=== PATIENT | male | born 1985 | race Caucasian/White ===

== ENCOUNTER 2021-03-04 23:25 | Emergency (ER) | payer SELFPAY ==
--- NOTE | 2021-03-04 23:28 | XRR_ITS ---
PROCEDURE INFORMATION: Exam: XR Chest Exam date and time: 03/04/2021 11:28 PM Age: 35 years old Clinical indication: Cough and fever and shortness of breath TECHNIQUE: Imaging protocol: XR of the chest. Views: 1 view. COMPARISON: No relevant prior studies available. FINDINGS: Lungs: Visualized portions of the lungs are clear. Pleural spaces: Unremarkable. No pleural effusion. No pneumothorax. Heart/Mediastinum: Heart is within normal limits of size. Bones/joints: There is old healed left clavicle fracture. XR/XR chest 1V portable [id number] IMPRESSION: No acute infiltrate.
[2021-03-04 23:35] VITALS: BP 131/83; PULSE 90; RESP 20; TEMP 38.3; O2SAT 96; BMI 24.3
--- NOTE | 2021-03-04 23:54 | W.ED.COVID ---
HPI - COVID General: Chief Complaint: COVID symptoms Stated Complaint: Fever\Cough\SOB\Muscle Aches Poss Covid Time Seen by Provider: 03/04/21 23:47 Source: patient Mode of arrival: ambulatory Limitations: no limitations Triage information: Has fever, cough or shortness of breath. No known COVID + exposure last 14 days History of Present Illness: HPI Narrative: 35-year-old male states that over the last 10 to 12 days has been having fever along with cough congestion and body aches. He states he is also had chills and diarrhea. States he has had some neck pain as well as anterior and felt like and swelling in his anterior neck. Denies any vomiting. He denies any worsening proving factors. He states his has had similar symptoms and they have quarantine themselves at home. He has not had his Covid vaccine. COVID 19 common symptoms: positive fever(s), chills, non-productive cough and body aches; negative headache(s), throat pain, nausea, vomiting or diarrhea COVID 19 other sytmptoms: negative chest pain COVID Results: SARS-CoV-2 Antigen (Rapid) Negative (Negative) 03/05/21 00:13 03/05/21 Review of Systems Const: Reports: fever(s), chills and body aches Eyes: Denies: blurry vision or eye discomfort ENMT: Denies: throat pain or dental pain Card: Denies: chest pain Resp: Reports: non-productive cough GI: Denies: abdominal pain, nausea, vomiting or diarrhea : Denies: dysuria Musc: Denies: neck pain or back pain Skin/Breast: Denies: rash Neuro: Denies: headache(s) Psych: Denies: depression Amado/Lymph: Denies: easy bruising All/Imm: Denies: urticaria Physical Exam Const: COMMON NORMALS: no acute distress, patient oriented x3 and healthy appearing HENMT: COMMON NORMALS: normocephalic and atraumatic HEAD & SCALP: normocephalic and atraumatic MOUTH: Normal oral and palatal mucosa present and moist mucous membranes abnormal THROAT: posterior oropharynx normal Eye: COMMON NORMALS: Equal, round and reactive pupils present and EOMs intact bilaterally PUPIL: Yes Equal, round and reactive pupils present Neck/C-Spine: COMMON NORMALS: full ROM, no lymphadenopathy, supple and no meningeal signs Chest: COMMONS NORMALS: normal inspection of the chest and normal palpation of entire chest wall Resp: COMMON NORMALS: normal respiratory effort, No retractions, No use of accessory muscles and clear to auscultation bilaterally AUSCULTATION: clear to auscultation bilaterally Cardio: COMMON NORMALS: regular rate, regular rhythm and No murmurs present (Cardio) RATE: regular rate RHYTHM: regular rhythm GI: COMMON NORMALS: Normal to inspection, nondistended, normoactive bowel sounds present, Soft to palpation, non-tender and no masses PALPATION: Yes Soft to palpation Extremity: COMMON NORMALS: normal to inspection and full ROM Neuro: COMMON NORMALS: patient oriented x3, moves all extremities and no focal motor deficits MENINGEAL SIGNS: Yes no meningeal signs Psych: COMMON NORMALS: mental status grossly normal, Normal thought process present and cooperative THOUGHT PROCESS: Normal thought process present Skin: COMMON NORMALS: no rashes or lesions noted and no wounds GENERAL SKIN EXAM: no rashes or lesions noted Course Vital Signs: Vital signs: Vital Signs Temperature 100.9 F H 03/04/21 23:35 Pulse Rate 87 03/05/21 00:16 Respiratory Rate 17 03/05/21 00:16 Blood Pressure 133/77 03/05/21 00:16 Pulse Oximetry 97 03/05/21 00:17 MDM - COVID MDM Narrative: Medical decision making narrative: Patient presents here with symptoms consider like a viral infection. He likely had Covid. His x-ray and blood work here are all normal. He has no signs of any serious infection no sign of meningitis. He is stable for discharge is to follow-up with PCP and return if worsening. He understands agrees to plan. Lab Data: Labs: Lab Results 03/04/21 03/04/21 03/05/21 Range/Units 00:13 00:13 00:13 WBC 10.7 H (4.0-10.0) 10^3/ uL RBC 4.77 (4.1-5.3) 10^6/u L Hgb 14.7 (11.7-16.6) g/dL Hct 42.0 (42.0-52.0) % MCV 88.1 (80-94) fl MCH 30.8 (28.0-34.0) pg MCHC 35.0 (30.0-36.0) g/dL RDW 11.2 L (12.1-15.1) % Plt Count 252 (130-400) 10^3/c mm MPV 9.2 (7.4-10.4) fL Neut % (Auto) 69.7 % Lymph % (Auto) 19.6 % [place] % (Auto) 8.6 % Eos % (Auto) 1.0 % Baso % (Auto) 0.4 % Neut # (Auto) 7.48 (1.8-7.7) 10^3/u L Lymph # (Auto) 2.1 (0.8-4.8) 10^3/u L [place] # (Auto) 0.9 (0.2-0.9) 10^3/u L Eos # (Auto) 0.1 (0.0-0.8) 10^3/u L Baso # (Auto) 0.0 (0.0-0.1) 10^3/u L Nucleated RBC % (a uto) 0 % Nucleated RBCs # 0.0 /100WBC Sodium 139 (136-145) mmol/L Potassium 3.9 (3.5-5.1) mmol/L Chloride 101 (98-107) mmol/L Carbon Dioxide 24 (22-29) mmol/L Anion Gap 17.9 (5-19) BUN 7 (6-20) mg/dL Creatinine 0.8 (0.7-1.2) mg/dL GFR Calculation 109.4 (90-130) mL/min Glucose 80 (65-115) mg/dL Calculated Osmolal ity 285 (285-295) mOsm/k g Calcium 9.1 (8.5-10.5) mg/dL Total Bilirubin 0.6 (0.15-1.2) mg/dL AST 42 H (0-40) U/L ALT 62 H (0-41) U/L Alkaline Phosphata se 88 (40-130) IU/L Total Protein 6.9 (6.6-8.7) g/dL Albumin 4.1 (3.5-5.2) g/dL Globulin 2.8 (1.3-4.6) g/dL SARS-CoV-2 Ag (Rap id) Negative (Negative) Imaging Data: CXR: Attestation: I personally reviewed and interpreted this imaging study as follows: Radiologist's impression: [address] [place] [address] XRay Report Signed Patient: Chai Cool Unit #: [id number] : 1985 Age/Sex: 35 / M ADM Date: 03/04/21 Loc: ER Room/Bed: Attending Dr: Ordering Provider/Ordering MD: Stephanie Khan MD Date of Service: 03/04/21 Procedure(s): XR chest 1V portable [id number] Accession Number(s): [id number] Report Number: [id number] PROCEDURE INFORMATION: Exam: XR Chest Exam date and time: 03/04/2021 11:28 PM Age: 35 years old Clinical indication: Cough and fever and shortness of breath TECHNIQUE: Imaging protocol: XR of the chest. Views: 1 view. COMPARISON: No relevant prior studies available. FINDINGS: Lungs: Visualized portions of the lungs are clear. Pleural spaces: Unremarkable. No pleural effusion. No pneumothorax. Heart/Mediastinum: Heart is within normal limits of size. Bones/joints: There is old healed left clavicle fracture. XR/XR chest 1V portable [id number] IMPRESSION: No acute infiltrate. Dictated By: Rafa Calix Signed By: Rafa Calix Signed Date/Time: 03/05/2113 DD/ COVID Results: SARS-CoV-2 Antigen (Rapid) Negative (Negative) 03/05/21 00:13 03/05/21 Discharge Plan Discharge Patient Disposition: Home Clinical Impression: Acute viral syndrome Condition: Stable Discharge Orders: Discharge ED (Routine); Ordered 03/05/21 Ordered By: Stephanie Khan Discharge Diet: Advance as tolerated Discharge Activity: Resume usual activity Patient Instructions: Viral Syndrome (ED) Coding Level of Care Code ED Family Protection Specialist for Chg Fwd Exam Comprehensive
[2021-03-05 00:16] VITALS: BP 133/77; PULSE 87; RESP 17; O2SAT 98
[2021-03-05 00:17] VITALS: O2SAT 97
[2021-03-05] MEDS: acetaminophen 500 mg Tablet 1000 MG PO (00:18)
[2021-03-05 00:19] LABS: Basophils % 0.4 %; Eosinophils # 0.1 10^3/uL (0.0-0.8); Hemoglobin 14.7 g/dL (11.7-16.6); Lymphocytes # 2.1 10^3/uL (0.8-4.8); Lymphocytes % 19.6 %; Mean Corpuscular Hemoglobin 30.8 pg (28.0-34.0); Mean Corpuscular Volume 88.1 fl (80-94); Mean Platelet Volume 9.2 fL (7.4-10.4); Monocytes # 0.9 10^3/uL (0.2-0.9); Monocytes % 8.6 %; Neutrophils # 7.48 10^3/uL (1.8-7.7); Neutrophils % 69.7 %; Nucleated Red Blood Cells % 0 %; Platelet Count 252 10^3/cmm (130-400); Red Blood Count 4.77 10^6/uL (4.1-5.3); Red Cell Distribution Width 11.2 % (12.1-15.1); White Blood Count 10.7 10^3/uL (4.0-10.0)
[2021-03-05] MEDS: sodium chloride 0.9% 1,000 ML 999 ML IV (00:19)
[2021-03-05 00:41] LABS: Alanine Aminotransferase 62 U/L (0-41); Albumin Level 4.1 g/dL (3.5-5.2); Alkaline Phosphatase 88 IU/L (40-130); Anion Gap 17.9 (5-19); Aspartate Amino Transferase 42 U/L (0-40); Blood Urea Nitrogen 7 mg/dL (6-20); Calcium 9.1 mg/dL (8.5-10.5); Carbon Dioxide 24 mmol/L (22-29); Chloride 101 mmol/L (98-107); Globulin 2.8 g/dL (1.3-4.6); Glomerular Filtration Rate 109.4 mL/min (90-130); Glucose 80 mg/dL (65-115); Osmolality Calculated 285 mOsm/kg (285-295); Potassium 3.9 mmol/L (3.5-5.1); Sodium 139 mmol/L (136-145); Total Bilirubin 0.6 mg/dL (0.15-1.2); Total Protein 6.9 g/dL (6.6-8.7)
[2021-03-05 00:44] LABS: SARS Covid-2 Antigen Negative (Negative)
[2021-03-05] MEDS: dexamethasone 10 mg/mL INJ IVP (00:55)
[2021-03-05 01:01] VITALS: BP 126/81; PULSE 79; RESP 17; O2SAT 98
== END 2021-03-05 01:02 | disposition home or self-care (01) ==
PROVIDERS: Emergency Provider Emergency Medicine
DX: B34.9 Viral infection, unspecified (principal); Z20.822 Contact with and (suspected) exposure to COVID-19
CPT/HCPCS: 71045; 80053; 85025; 87426; 96361; 96374; 99284; J1100; J7030

== ENCOUNTER 2022-03-10 15:40 | Emergency (ER) | payer MEDICAID, SELFPAY ==
--- NOTE | 2022-03-10 16:50 | XRR_ITS ---
PROCEDURE INFORMATION: Exam: XR Left Foot Exam date and time: 03/10/2022 4:59 PM Age: 36 years old Clinical indication: Pain; Foot; Left; Patient HX: Proximal; Additional info: Stepped on nail TECHNIQUE: Imaging protocol: Radiologic exam of the Left foot. Views: 3 or more views. COMPARISON: No relevant prior studies available. FINDINGS: Bones/joints: Normal. Soft tissues: Normal. No foreign body is visible. XR/XR foot LT min 3V* [id number] IMPRESSION: No acute findings.
[2022-03-10 16:52] VITALS: BP 138/92; PULSE 92; RESP 20; TEMP 36.4; O2SAT 98
[2022-03-10] MEDS: tetanus-diphtheria tox (adult) 0.5 mL SDV IM (17:11)
[2022-03-10] MEDS: HYDROcodone-acetaminophen 5-325 mg Tablet 1 TAB PO (17:11)
--- NOTE | 2022-03-10 18:59 | W.ED.WOUNDLC ---
HPI - Wound/Laceration General: Chief Complaint: Wound/Laceration Stated Complaint: stepped on nail Time Seen by Provider: 03/10/22 16:46 History of Present Illness: 36-year-old male patient presents to the emergency department with a puncture wound to the plantar aspect of the left foot. Pt states he stepped on a nal. Nail was removed entirely. Pt is unsure of his last tetanus shot. Associated symptoms: Denies chills, fever(s), nausea, syncope or vomiting Review of Systems Const: Denies: fever(s), chills, body aches, change in appetite, change in weight, fatigue, malaise or diaphoresis Eyes: Denies: change in vision, blurry vision, blind spots, photophobia, eye discomfort, eye discharge, eye redness, floaters or seeing flashes ENMT: Denies: throat pain, enlarged tonsils, odynophagia, hoarseness, mouth pain, swelling of lips/tongue, oral sores, bleeding gums, dental pain, dry mouth, ear or mastoid pain, ear discharge, change in hearing, tinnitus, disequilibrium, nasal discharge, nasal congestion, post nasal drip or sinus pain Card: Denies: chest pain, palpitations, irregular heart rhythm, edema, swelling of feet/ankles, lightheadedness, syncope, pre-syncope, dyspnea on exertion, orthopnea, leg pain with exertion or acrocyanosis Resp: Denies: dyspnea, productive cough, non-productive cough, wheezing, stridor, pain on inspiration, change in phlegm color, hemoptysis or chest congestion GI: Denies: abdominal pain, nausea, vomiting, hematemesis, dysphagia, diarrhea, constipation, GI cramping, change in bowel habits or rectal pain : Denies: flank pain, dysuria, urinary frequency, urinary urgency, urinary hesitancy or hematuria Musc: Denies: neck pain, back pain, extremity pain, extremity swelling, joint pain, joint swelling, joint redness, joint warmth or deformity Skin/Breast: Denies: rash, pruritus, erythema, sores, new lesions, changes in skin color or dry skin Neuro: Denies: headache(s), numbness in extremities, weakness in extremities, sensory changes, lack of coordination, difficulty walking, frequent falls, dizziness, vertigo, confusion, behavioral changes, Slurred speech present, difficulty communicating thoughts or seizure-like activity Psych: Denies: anxiety, depression, suicidal ideation or homicidal ideation Endo: Denies: polyuria, polydipsia, tired all the time, cold intolerance, excessive sweating, flushing, hot flashes or heat intolerance Amado/Lymph: Denies: easy bruising, easy bleeding, petechiae, purpura, enlarged lymph nodes or tender lymph nodes All/Imm: Denies: urticaria, throat swelling, tongue swelling, facial swelling, acute wheezing or itchy eyes Physical Exam Const: COMMON NORMALS: no acute distress, average body habitus, patient oriented x3, no limitations, healthy appearing, alert and well nourished Extremity: NARRATIVE EXTREMITY EXAM: puncture wound noted to plantar surface of left foot Neuro: COMMON NORMALS: patient oriented x3 SENSORIUM/ORIENTATION: Yes alert Course Vital Signs: Vital signs: Vital Signs Temperature 97.6 F 03/10/22 16:52 Pulse Rate 92 03/10/22 16:52 Respiratory Rate 20 H 03/10/22 16:52 Blood Pressure 138/92 03/10/22 16:52 Pulse Oximetry 98 03/10/22 16:52 MDM - Wound/Laceration Medical Decision Making Patient is well appearing non toxic and in no acute distress. 36-year-old male patient presents to the emergency department with a puncture wound to the plantar aspect of the left foot. Pt states he stepped on a nal. Nail was removed entirely. Pt is unsure of his last tetanus shot. No FB visualized on xray with no acute findings. wound was irrigated and cleaned. tetanus shot updated and antibiotics prescribed pt is NVI distally Lab Data Radiology Impressions Foot X-Ray 03/10/22 16:50 IMPRESSION: No acute findings. Discharge Plan Discharge Patient Disposition: Home Clinical Impression: Puncture wound Condition: Stable Prescriptions: New cephalexin 500 mg capsule 500 mg PO Q8H 7 Days Qty: 21 0RF Discharge Orders: Discharge ED (Routine); Ordered 03/10/22 Ordered By: Catarina Pierce Referrals: Shweta Clark FNP [Primary Care Provider] - Discharge Diet: Advance as tolerated Discharge Activity: Increase activity as tolerated Patient Instructions: Opioid Safety Activity Restrictions/Additional Instructions: Please take mediations as prescribed Please return to ER with any worsening of symptoms or condition Coding Level of Care Code ED Assistant Housekeeping Manager for Dahlia Snowden
== END 2022-03-10 18:36 | disposition home or self-care (01) ==
PROVIDERS: Emergency Provider Registered Nurse; PCP Nurse Practitioner Family
DX: S91.332A Puncture wound without foreign body, left foot, initial encounter (principal); W45.0XXA Nail entering through skin, initial encounter; Z23 Encounter for immunization
CPT/HCPCS: 73630; 90471; 90714; 99284

== ENCOUNTER 2022-03-23 09:41 | Emergency (ER) | payer MEDICAID, SELFPAY ==
[2022-03-23 09:59] VITALS: BP 126/80; PULSE 63; RESP 18; TEMP 36.8; O2SAT 99; BMI 25.3
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
[2022-03-23] MEDS: naproxen 500 mg Tablet PO (10:30)
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
== END 2022-03-23 11:16 | disposition home or self-care (01) ==
PROVIDERS: Emergency Provider Emergency Medicine; PCP Nurse Practitioner Family
DX: S13.4XXA Sprain of ligaments of cervical spine, initial encounter (principal); V89.2XXA Person injured in unspecified motor-vehicle accident, traffic, initial encounter
CPT/HCPCS: 71046; 72040; 99283

== ENCOUNTER 2024-08-29 14:18 | Outpatient (CLI) | payer OTHER, SELFPAY ==
--- NOTE | 2024-08-29 14:30 | MR_ITS ---
WS: [id number] MRI LEFT ELBOW WITHOUT CONTRAST. COMPARISON: None Multiplanar, multisequence imaging is performed without contrast. No acute fracture or marrow edema. No displacement at the elbow joint. Distal triceps tendon is intact. There is very mild olecranon bursitis. Small fluid collection posterior to the olecranon at the site of the triceps attachment. Collection measures 12 x 4 mm. Mm. Biceps tendon is noted at the radial tuberosity. There is no edema or abnormal signal. Brachialis tendon inserts normally on the ulnar tuberosity. There is a small amount of fluid coursing along the brachialis tendon to the antecubital fossa. Majority of the tendon appears normal. Partial tear is not excluded. Brachioradialis tendon appears appropriate. Common flexor and common extensor tendons are normal. No radial or ulnar collateral ligament tear. There is no significant joint effusion. MR/MR elbow LT wo con* [id number] IMPRESSION: 1. No acute fracture or marrow edema. 2. Mild olecranon bursitis. There is a small fluid collection posterior to the olecranon measuring 12 x 4 mm. 3. Normal biceps tendon attachment at the radial tuberosity. 4. Brachialis tendon inserts at the ulnar tuberosity but there is small amount of fluid and increased T2 signal surrounding the brachialis tendon through the antecubital fossa suggesting a partial tear. 5. No joint effusion. 6. No muscle edema.
== END 2024-08-29 14:19 | disposition home or self-care (01) ==
LOC: RAD 14:18
PROVIDERS: PCP Nurse Practitioner Family; Visit Provider Nurse Practitioner Family
DX: Z02.6 Encounter for examination for insurance purposes (principal); M25.522 Pain in left elbow; Y99.0 Civilian activity done for income or pay; M70.22 Olecranon bursitis, left elbow; R93.6 Abnormal findings on diagnostic imaging of limbs
CPT/HCPCS: 73221

== ENCOUNTER → 2024-09-13 14:24 | Outpatient (BNVA) | payer OTHER, SELFPAY | PROVIDERS: PCP Nurse Practitioner Family; Referring Provider Family Medicine; Visit Provider Nurse Practitioner | DX: M70.22 Olecranon bursitis, left elbow (principal); M77.12 Lateral epicondylitis, left elbow; R20.2 Paresthesia of skin; Z02.6 Encounter for examination for insurance purposes; G56.03 Carpal tunnel syndrome, bilateral upper limbs | CPT/HCPCS: 73080 ==

== ENCOUNTER 2024-12-28 23:26 | Emergency (ER) | payer OTHER, SELFPAY ==
[2024-12-28 23:31] VITALS: BP 147/100; PULSE 86; RESP 20; TEMP 36.7; O2SAT 99; BMI 26.1
--- NOTE | 2024-12-28 23:35 | ECG_ITS ---
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
--- NOTE | 2024-12-29 00:09 | XRR_ITS ---
PROCEDURE INFORMATION: Exam: XR Chest Exam date and time: 12/29/2024 12:17 AM Age: 39 years old Clinical indication: Pain; Chest pressure; Additional info: Cp TECHNIQUE: Imaging protocol: Radiologic exam of the chest. Views: 1 view. COMPARISON: CR XR chest 2V* [id number] 03/23/2022 10:39 AM FINDINGS: Lungs: Unremarkable. No consolidation. Pleural spaces: Unremarkable. No pleural effusion. No pneumothorax. Heart/Mediastinum: Unremarkable. No cardiomegaly. Bones/joints: Unremarkable. XR/XR chest 1V portable [id number] IMPRESSION: No acute findings.
[2024-12-29 01:23] VITALS: BP 162/113; PULSE 73; RESP 18; O2SAT 100
[2024-12-29 01:57] LABS: Basophils # 0.1 10^3/uL (0.0-0.1); Basophils % 0.5 %; Eosinophils # 0.1 10^3/uL (0.0-0.8); Eosinophils % 1.3 %; Hematocrit 43.7 % (37-53); Lymphocytes # 3.1 10^3/uL (0.8-4.8); Lymphocytes % 32.9 %; Mean Corpuscular HGB Conc 35.9 g/dL (30-55); Mean Corpuscular Volume 86.2 fl (82-101); Mean Platelet Volume 9.3 fL (7.4-10.4); Monocytes # 0.8 10^3/uL (0.2-0.9); Monocytes % 8.6 %; Neutrophils # 5.29 10^3/uL (1.8-7.7); Neutrophils % 56.3 %; Nucleated Red Blood Cells % 0 %; Platelet Count 262 10^3/cmm (157-399); Red Blood Count 5.07 10^6/uL (3.85-5.65); Red Cell Distribution Width 11.9 % (12.1-15.1)
[2024-12-29] MEDS: LORazepam 1 MG/0.5 ML injection 0.5 MG IVP (02:09)
[2024-12-29] MEDS: sodium chloride 0.9% 1,000 ML 999 ML IV (02:09)
--- NOTE | 2024-12-29 02:10 | ECG_ITS ---
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
[2024-12-29 02:15] LABS: Troponin(5th) Baseline < 6 ng/L (0-15)
[2024-12-29 02:16] LABS: Alanine Aminotransferase 40 U/L (0-41); Albumin Level 4.6 g/dL (3.5-5.2); Alkaline Phosphatase 98 U/L (40-130); Anion Gap 17.8 (5-19); Aspartate Amino Transferase 28 U/L (0-40); Blood Urea Nitrogen 18 mg/dL (6-20); Calcium 9.6 mg/dL (8.5-10.5); Carbon Dioxide 22 mmol/L (22-29); Chloride 103 mmol/L (98-107); Globulin 2.3 g/dL (1.3-4.6); Glomerular Filtration Rate 74.1 mL/min (90-130); Glucose 83 mg/dL (65-115); Osmolality Calculated 289 mOsm/kg (285-295); Potassium 3.8 mmol/L (3.5-5.1); Sodium 139 mmol/L (136-145); Total Bilirubin 0.7 mg/dL (0.15-1.2); Total Protein 6.9 g/dL (6.6-8.7)
[2024-12-29 03:17] VITALS: BP 145/95; PULSE 72; RESP 16; O2SAT 96
[2024-12-29 04:24] LABS: Troponin 5 2HR < 6.0 ng/L (0-15); Troponin 5 2HR Delta 0 ABS# (0-10)
--- NOTE | 2024-12-29 06:03 | W.ED.CHESTPA ---
HPI - Chest Pain General: Chief Complaint: Chest Pain Stated Complaint: CP muscle spasms Time Seen by Provider: 12/29/24 01:19 History of Present Illness: Patient presents with new-onset muscle convulsions that began tonight, along with a several-day history of progressive weakness and shakiness. The weakness was first noticed on Wednesday, improved slightly on Wednesday, but worsened again on Wednesday and has persisted throughout the week. Patient reports chronic diarrhea ongoing for at least three weeks, possibly four, with associated intermittent abdominal pain in various locations, most notably on the left side. Appetite is present but patient is afraid to eat due to diarrhea worsening after meals. No reported fever, though patient notes rarely having fever even during prior illnesses. Denies significant chest pain, though describes mild discomfort likely related to muscle tensing. No presyncope or syncope, but reports difficulty standing due to weakness. Patient has been working in the heat and suspects possible dehydration. Recent medication changes include starting amoxicillin for presumed diverticulitis and doubling sertraline dose per psychiatrist. No recent boil water notice exposure. No history of similar convulsions in the past; shakiness has been present for about a week. Related Data Previous Rx's ?Medication ?Instructions ?Recorded sertraline 100 mg tablet (Zoloft) 100 mg PO DAILY #30 tabs 12/18/24 trazodone 100 mg tablet 200 mg (2 x 100 mg) PO .HS PRN 12/18/24 insomnia #60 tabs Allergies Allergy/AdvReac Type Severity Reaction Status Date / Time aloe vera Allergy Unknown Verified 12/18/24 09:59 Sulfa (Sulfonamide Allergy ALGY-Rash Verified 12/18/24 09:59 Antibiotics) PFSH ED PFSH: Medical History Psychiatric care Lateral epicondylitis of left elbow Olecranon bursitis, left elbow No pertinent past medical history Social History Smoking and tobacco/nicotine status: never used tobacco/nicotine Substance/Drug Use: never Physical Exam Const: COMMON NORMALS: no acute distress, patient oriented x3 and alert HENMT: COMMON NORMALS: normocephalic and atraumatic HEAD & SCALP: normocephalic and atraumatic Eye: COMMON NORMALS: Equal, round and reactive pupils present, EOMs intact bilaterally and no scleral icterus PUPIL: Yes Equal, round and reactive pupils present Resp: COMMON NORMALS: normal respiratory effort and No retractions Cardio: COMMON NORMALS: regular rate, regular rhythm and No murmurs present (Cardio) RATE: regular rate RHYTHM: regular rhythm GI: COMMON NORMALS: Normal to inspection, nondistended, normoactive bowel sounds present, Soft to palpation and non-tender PALPATION: Yes Soft to palpation Neuro: COMMON NORMALS: patient oriented x3 SENSORIUM/ORIENTATION: Yes alert Skin: COMMON NORMALS: no rashes or lesions noted GENERAL SKIN EXAM: no rashes or lesions noted Course Vital Signs: Vital signs: Vital Signs Temperature 98.0 F 12/28/24 23:31 Pulse Rate 72 12/29/24 03:17 Respiratory Rate 16 12/29/24 03:17 Blood Pressure 145/95 12/29/24 03:17 Pulse Oximetry 96 12/29/24 03:17 Oxygen Delivery Me thod Room Air 12/29/24 03:17 MDM - Chest Pain Medical Decision Making Patient remained hemodynamically stable 30 course. EKG and labs are reassuring. Headache and chest pain are better with treatment. He appears anxious. I do not suspect ACS, PE, pneumonia, or any other emergent process warranting further workup. He will be discharged in stable and improved condition with follow-up to primary care as needed. Lab Data 12/29/24 01:50 12/29/24 01:50 Radiology Impressions Chest X-Ray 12/29/24 00:09 IMPRESSION: No acute findings. Laboratory Results WBC 9.40 10^3/uL (3.29-11.43) 12/29/24 01:50 RBC 5.07 10^6/uL (3.85-5.65) 12/29/24 01:50 Hgb 15.70 g/dL (11.27-16.99) 12/29/24 01:50 Hct 43.7 % (37-53) 12/29/24 01:50 MCV 86.2 fl (82-101) 12/29/24 01:50 MCH 31.0 pg (27-33) 12/29/24 01:50 MCHC 35.9 g/dL (30-55) 12/29/24 01:50 RDW 11.9 % (12.1-15.1) L 12/29/24 01:50 Plt Count 262 10^3/cmm (157-399) 12/29/24 01:50 MPV 9.3 fL (7.4-10.4) 12/29/24 01:50 Neut % (Auto) 56.3 % 12/29/24 01:50 Lymph % (Auto) 32.9 % 12/29/24 01:50 [place] % (Auto) 8.6 % 12/29/24 01:50 Eos % (Auto) 1.3 % 12/29/24 01:50 Baso % (Auto) 0.5 % 12/29/24 01:50 Neut # (Auto) 5.29 10^3/uL (1.8-7.7) 12/29/24 01:50 Lymph # (Auto) 3.1 10^3/uL (0.8-4.8) 12/29/24 01:50 [place] # (Auto) 0.8 10^3/uL (0.2-0.9) 12/29/24 01:50 Eos # (Auto) 0.1 10^3/uL (0.0-0.8) 12/29/24 01:50 Baso # (Auto) 0.1 10^3/uL (0.0-0.1) 12/29/24 01:50 Nucleated RBC % (auto) 0 % 12/29/24 01:50 Nucleated RBCs # 0.0 /100WBC 12/29/24 01:50 Sodium 139 mmol/L (136-145) 12/29/24 01:50 Potassium 3.8 mmol/L (3.5-5.1) 12/29/24 01:50 Chloride 103 mmol/L (98-107) 12/29/24 01:50 Carbon Dioxide 22 mmol/L (22-29) 12/29/24 01:50 Anion Gap 17.8 (5-19) 12/29/24 01:50 BUN 18 mg/dL (6-20) 12/29/24 01:50 Creatinine 1.1 mg/dL (0.7-1.2) 12/29/24 01:50 GFR Calculation 74.1 mL/min (90-130) L 12/29/24 01:50 Glucose 83 mg/dL (65-115) 12/29/24 01:50 Calculated Osmolality 289 mOsm/kg (285-295) 12/29/24 01:50 Calcium 9.6 mg/dL (8.5-10.5) 12/29/24 01:50 Total Bilirubin 0.7 mg/dL (0.15-1.2) 12/29/24 01:50 AST 28 U/L (0-40) 12/29/24 01:50 ALT 40 U/L (0-41) 12/29/24 01:50 Alkaline Phosphatase 98 U/L (40-130) 12/29/24 01:50 Troponin T Baseline < 6 ng/L (0-15) 12/29/24 01:50 Troponin T 120 Minute < 6.0 ng/L (0-15) 12/29/24 03:58 Delta Troponin T 0 ABS# (0-10) 12/29/24 03:58 Total Protein 6.9 g/dL (6.6-8.7) 12/29/24 01:50 Albumin 4.6 g/dL (3.5-5.2) 12/29/24 01:50 Globulin 2.3 g/dL (1.3-4.6) 12/29/24 01:50 All radiology interpretation(s) finalized by discharge Discharge Plan Discharge Patient Disposition: Home Clinical Impression: Chest pain, Headache, Shakiness Condition: Stable Prescriptions: No Action trazodone 100 mg tablet 200 mg PO .HS PRN (Reason: insomnia) Qty: 60 2RF sertraline [Zoloft] 100 mg tablet 100 mg PO DAILY Qty: 30 2RF Discharge Orders: Discharge ED (Routine); Ordered 12/29/24 Ordered By: Hadley Weems Referrals: Brianna Warner MD [Primary Care Provider, Family Practice] Discharge Diet: Advance as tolerated Discharge Activity: Increase activity as tolerated Patient Instructions: Patient Portal & [place] Instructions Activity Restrictions/Additional Instructions: Your EKG and blood test are reassuring with no evidence of heart disease, infection, or other abnormality requiring hospitalization or medication changes. Your symptoms are not consistent with serotonin syndrome or other medication induced abnormality. Please follow-up with your primary care doctor and continue taking medication as prescribed. Stand Alone Forms: Work/School Release Print Language: Wallisian Coding Level of Care Code ED Pharmacoepidemiologist for Chg Fwd
--- NOTE | 2024-12-29 06:09 | ECG_ITS ---
[employer] Test Date: 2024-12-29 Pat Name: Chai Cool Department: Room: Gender: Male [employer]: : 1985 Requested By: Hadley Cortez Order Number: [id number] Reading MD: Measurements Intervals [place] Rate: 63 P: 43 PA: 167 QRS: 35 QRSD: 81 T: 40 QT: 355 QTc: 365 Interpretive Statements SINUS RHYTHM No previous ECG available for comparison [email or web address]
[2024-12-29 06:33] VITALS: BP 137/87; PULSE 76; RESP 16; O2SAT 97
== END 2024-12-29 06:34 | disposition home or self-care (01) ==
PROVIDERS: Emergency Provider Student in an Organized Health Care Education/Training Program; PCP Family Medicine
DX: R07.9 Chest pain, unspecified (principal); R51.9 Headache, unspecified; R53.1 Weakness
CPT/HCPCS: 36415; 71045; 80053; 84484; 85025; 93005; 96374; 99285; J2060; J7030

== ENCOUNTER → 2025-05-17 07:33 | Outpatient (BNVA) | payer BC, SELFPAY | PROVIDERS: PCP Family Medicine; Visit Provider Family Medicine Adult Medicine | DX: J06.0 Acute laryngopharyngitis (principal); J06.9 Acute upper respiratory infection, unspecified | CPT/HCPCS: 87071; 87880 ==